=== PATIENT | female | born 1950 | race Caucasian/White ===

== ENCOUNTER 2020-10-22 12:31 | Observation (INO) ==
[2020-10-22] MEDS ORDERED: ONDANSETRON 4 MG/2 ML VIAL IM STA (14:13)
[2020-10-22] MEDS ORDERED: MORPHINE 4 MG/1 ML VIAL IM STA (14:13)
[2020-10-22 15:15] LABS: Basophils # 0.1 10*3/uL (0.0-0.2); Basophils % 0.8 % (0.0-0.8); Eosinophils # 0.1 10*3/uL (0.0-0.87); Eosinophils % 1.2 % (0.00-10.9); Hematocrit 42.6 VOL% (35.7-47.0); Hemoglobin 14.8 GM/DL (12.0-16.0); Immature Granulocytes % 0.3 %; Immature Granulocytes Absolute 0.03 #; Lymphocytes # 2.1 10*3/uL (1.4-4.0); Lymphocytes % 22.9 % (21.3-54.2); Mean Corpuscular HGB Conc 34.7 GM/DL (32-36); Mean Corpuscular Volume 95.1 FL (87-102); Mean Platelet Volume 8.5 FL (9.6-12.0); Monocytes % 9.5 % (1.7-12.7); Neutrophils % 65.3 % (38.7-73.9); Platelet Count 368 T/CUMM (130-400); Red Blood Count 4.48 MC/CUMM (3.8-5.5); Red Cell Distribution Width 13.6 % (9.3-17.3); White Blood Count 9.3 T/CUMM (4-12)
[2020-10-22] MEDS ORDERED: DOCUSATE SODIUM 100 MG CAPSULE PO PRN (15:21)
[2020-10-22] MEDS ORDERED: ACETAMINOPHEN 325 MG TABLET PO PRN (15:21)
[2020-10-22] MEDS ORDERED: GLUCAGON 1 MG VIAL IM PRN (15:21)
[2020-10-22] MEDS ORDERED: hydrALAZINE 20 MG/1 ML VIAL IV PRN (15:21)
[2020-10-22] MEDS ORDERED: ONDANSETRON 4 MG/2 ML VIAL IV PRN (15:21)
[2020-10-22] MEDS ORDERED: DEXTROSE 50% 25 GM/50 ML VIAL IV PRN (15:21)
[2020-10-22 15:39] LABS: Albumin 3.5 G/DL (3.4-5.0); Bilirubin,Total 0.8 MG/DL (0.2-1.0); Calcium 9.3 MG/DL (8.5-10.1); Osmolality,Calculated 264.2 MOS/KG (273-304); Total Protein 7.2 G/DL (6.4-8.3)
[2020-10-22] MEDS ORDERED: LORazepam 2 MG/1 ML VIAL IV PRN (16:00)
[2020-10-22] MEDS: NICOTINE 21 MG/24 HR PATCH TRANSDERM SCH (18:12)
[2020-10-22] MEDS ORDERED: THIAMINE INJ 100 MG, FOLIC ACID INJ 1 MG, MULTIVITAMIN INJ 10 ML in SODIUM CHLORIDE 0.9... IV ONE (18:30)
[2020-10-22 19:28] LABS: Bacteria,Urine Occasional /HPF (Few); Bilirubin,Urine Negative (Negative); Blood, Urine Negative (Negative); Glucose,Urine (UA) Negative (Negative); Ketones,Urine Negative (Negative); Nitrite,Urine Positive (Negative); Protein,Urine Negative; RBC,Urine <1 /HPF (0-4); Squamous Epithelial Cell,Urine Occasional /HPF (0-10); Urine Appearance Slightly Hazy (Clear); Urine Color Yellow (Yellow); Urine Specific Gravity 1.006 (1.001-1.035); Urine Urobilinogen < 2.0 EU/DL (0.2-1.0); WBC,Urine 1 /HPF (0-6)
[2020-10-22] MEDS: chlordiazePOXIDE 25 MG CAPSULE PO SCH (20:57)
[2020-10-23 06:13] LABS: Basophils # 0.1 10*3/uL (0.0-0.2); Basophils % 1.1 % (0.0-0.8); Eosinophils # 0.1 10*3/uL (0.0-0.87); Eosinophils % 1.8 % (0.00-10.9); Hematocrit 37.4 VOL% (35.7-47.0); Hemoglobin 13.2 GM/DL (12.0-16.0); Immature Granulocytes % 0.3 %; Immature Granulocytes Absolute 0.02 #; Lymphocytes # 2.8 10*3/uL (1.4-4.0); Lymphocytes % 37.5 % (21.3-54.2); Mean Corpuscular HGB Conc 35.3 GM/DL (32-36); Mean Corpuscular Volume 94.2 FL (87-102); Monocytes % 11.5 % (1.7-12.7); Neutrophils % 47.8 % (38.7-73.9); Platelet Count 404 T/CUMM (130-400); Red Blood Count 3.97 MC/CUMM (3.8-5.5); Red Cell Distribution Width 13.6 % (9.3-17.3); White Blood Count 7.6 T/CUMM (4-12)
[2020-10-23 06:40] LABS: Calcium 8.8 MG/DL (8.5-10.1); Osmolality,Calculated 269.8 MOS/KG (273-304); Risk Ratio 1.98; VLDL CHOLESTEROL 10.6 MG/DL
[2020-10-23 07:30] LABS: Free T4 (Free Thyroxine) 0.97 NG/DL (0.76-1.46)
[2020-10-23] MEDS ORDERED: ENOXAPARIN 40 MG/0.4 ML SYRINGE SUBCUT SCH (09:00)
[2020-10-23] MEDS ORDERED: lisinopriL 10 MG TABLET PO SCH (09:00)
[2020-10-23] MEDS: NICOTINE 21 MG/24 HR PATCH TRANSDERM SCH (09:08)
[2020-10-23] MEDS: chlordiazePOXIDE 25 MG CAPSULE PO SCH (09:08)
[2020-10-23] MEDS ORDERED: CIPROFLOXACIN 500 MG TABLET PO SCH (10:30)
[2020-10-23 11:15] VITALS: BP 146/89
== END 2020-10-23 15:00 | disposition home health service (06) ==
LOC: N.ED 12:31 → N.EDINP 12:31 → N.3E 17:15
PROVIDERS: ADMIT Internal Medicine; ATTEND Internal Medicine